=== PATIENT | male | born 1950 | race Caucasian/White ===

== ENCOUNTER 2016-04-17 17:26 | Observation (INO) | payer BC ==
--- NOTE | 2016-04-17 17:29 | US ---
Ultrasound Venous Duplex/Doppler left Leg History: Pain and swelling. Findings: Ultrasound venous duplex and Doppler imaging of the common femoral vein, femoral vein, pop liteal vein, calf veins, greater saphenous vein origin, and contralateral common femoral vein demonst rates positive intraluminal thrombus involving the left femoral vein, popliteal vein, posterior tibia l vein and peroneal veins. No thrombus in left common femoral vein. Impression: Positive extensive deep venous thromboses involving the left femoral, popliteal, and calf veins. Findings and recommendations discussed with Dr. Darrian Ospina at 1715 hour, today. Findings and recommendations have been discussed with the patient who agrees with the plan. Patient h as been taken to the emergency department. Findings and recommendations discussed with Emergency Department physician, Dr. Latesha Segovia, at 1720 hours today. Final report concurs with initial preliminary interpretation. A test result has been communicated to a licensed care provider and documented in [facility] [place] [facility], 5:27:48 PM , 04/17/2016, [place] [facility] Message ID [id number].
--- NOTE | 2016-04-17 17:39 | DX ---
PA and Lateral Chest History: Shortness of breath in a 66-year-old male; no previous chest films are available. Findings: The heart and mediastinal contours are normal. Pulmonary vascularity is normal. There is c entral peribronchial thickening. There are no alveolar opacities seen to suggest pneumonia. Impression: Findings consistent with bronchitis/airways disease are noted.
--- NOTE | 2016-04-17 18:02 | EDPHY ---
[id number]: The patient is a 66 year old male sent here with new diagnosis of DVT in left lower extremity. The patient reports 1 month of swelling in his left calf. He notes moderate pain behind his left knee due to left calf tightness. He noticed increased shortness of breath on exertion. This SOB began a few months ago, it is not present at rest and has not worsened over the past month. He denies recent travel. No recent surgery or procedures. No history of clotting disorder. The patient started swimming for exercise and states that is the only recent change. He also complains of some lower abdominal pain. This pain is intermittent and moderate in severity. His pain is worse after eating. He denies nausea or vomiting. REVIEW OF SYSTEMS: Aside from elements discussed in the HPI, a comprehensive 10-point review of systems was reviewed and is negative. Past Medical/Surgical History: Hypertension, Polycystic kidney disease, baseline creatinine 1.6, Peripheral neuropathy. PSH: left knee replacement Social History: at bedside. Smoking Status: Former smoker Physical Exam: General Appearance: Alert, pleasant Eyes: Pupils equal and round, no conjunctival pallor or injection ENT, Mouth: Mucous membranes moist Neck: Normal inspection Respiratory: Normal respiratory rate, Lungs are clear to auscultation Cardiovascular: Regular rate and rhythm Gastrointestinal: Abdomen is soft and non-tender Neurological: A&O, nonfocal, normal gait Skin: Warm and dry, no rash Extremities: Swelling and tenderness to left calf, positive Homans sign Psychiatric: Mood and affect normal Constitutional: Initial Vital Signs Temperature (C) 36.7 C 04/17/16 17:30 Heart Rate 52 L 04/17/16 17:30 Respiratory Rate 18 04/17/16 17:30 Blood Pressure 150/89 H 04/17/16 17:30 O2 Sat (%) 94 04/17/16 17:30 O2 Delivery Mode Room Air Allergies/Adverse Reactions: No Known Allergies Allergy (Verified 04/17/16 17:28) Home Medications: Medication Instructions Recorded Hydrochlorothiazide [HCTZ (*)] 12.5 mg PO DAILY 08/23/14 Lisinopril [Zestril 20 mg (*)] 20 mg PO DAILY 08/23/14 Omeprazole [Prilosec 20 mg] 20 mg PO DAILY 08/23/14 Acetaminophen [Tylenol 325mg (*)] 650 mg PO Q4HRS PRN #0 tab 04/18/16 Rivaroxaban [Xarelto] 20 mg PO DAILY #30 tab 04/18/16 Medical Decision Making - Diagnostics EKG Interpretation: The 12 lead EKG was interpreted by myself. See hard copy and/or "tracemaster" electronic copy for interpretation: Sinus rhythm, rate 62. Ventricular premature complex. Imaging: Study: Ultrasound of the lower extremity donne earlier today as outpatient. Results: Positive extensive deep venous thromboses involving the left femoral, popliteal, and calf veins. Images were interpreted by the radiologist, Dr. Quinteros. Study: X-ray of the chest was obtained. Results: Bronchitis. Images were interpreted by the radiologist, Dr. Smith. I viewed the images myself on the PACS system. ED Course/Re-evaluation: This patient presents with a left lower extremity DVT. Given his ongoing shortness breath over the last few months, he may also have a pulmonary embolism. Given his baseline creatinine of 1.6, he is not a candidate for CT pulmonary angiogram. He will need a V/Q scan to evaluate for possible pulmonary embolism. This study is not available this evening. I will place him on IV heparin and planned for V/Q scan in the morning. Regarding the shortness of breath, there is no evidence of pulmonary edema or symptoms suggestive of angina/acute coronary syndrome. If the V/Q scan is negative, he will require further evaluation of shortness of breath. 6:15 p.m.: I consulted the hospitalist, the patient will be admitted to Dr. Marshall. 7:30 p.m.: I consult Dr. Morrison, she will consult in the morning regarding possible thrombolysis. Differential Diagnosis: Differential diagnosis includes though it is not limited to acute arterial compromise, cellulitis, compartment syndrome, neurovascular compromise, pulmonary embolism, congestive heart failure, acute coronary syndrome. - Data Points Laboratory Results: Laboratory Results 04/17/16 18:02 04/17/16 18:02 Medications Given: Discontinued Medications Heparin Sodium (Porcine) (Heparin Injection) 0 unit IVP EDNOW ONE PRN Reason: Protocol Stop: 04/17/16 18:24 Last Admin: 04/17/16 18:54 Dose: 5,300 units Hydrochlorothiazide (Microzide) 12.5 mg PO DAILY JOSE Stop: 10/15/16 08:59 Last Admin: 04/18/16 12:54 Dose: 12.5 mg Heparin Sodium (Porcine) (Heparin 50 Units/Ml (Premix)) 500 mls @ 0 mls/hr IV EDNOW ONE; Per Protocol PRN Reason: Protocol Stop: 04/17/16 18:24 Last Admin: 04/17/16 18:54 Dose: 500 mls Lisinopril (Zestril) 20 mg PO DAILY [facility] Stop: 10/15/16 08:59 Last Admin: 04/18/16 10:33 Dose: 20 mg Pantoprazole Sodium (Protonix) 40 mg PO DAILY [facility] Stop: 10/15/16 08:59 Last Admin: 04/18/16 10:32 Dose: 40 mg Departure - Departure Disposition: [facility] Inpatient Acute Clinical Impression: DVT (deep venous thrombosis) Condition: Fair Report Scribed for: Latesha Segovia Report Scribed by: Julia Coe Date of Report: 04/17/16 Time of Report: 18:08 Physician Review and Approval Statement: 04/17/16 18:08 Portions of this note were transcribed by a medical billing and coding instructor. I personally performed the history, physical exam, and medical decision-making; and confirmed the accuracy of the information in the transcribed note.
--- NOTE | 2016-04-17 18:04 | CPEKG ---
Heart Rate: 62 RR Interval: 968 P-R Interval: 152 QRSD Interval: 96 QT Interval: 396 QTC Interval: 402 P Billingsley: 48 QRS Billingsley: 1 T Wave Billingsley: 35 EKG Severity - OTHERWISE NORMAL ECG - EKG Impression: SINUS RHYTHM EKG Impression: VENTRICULAR PREMATURE COMPLEX Electronically Signed By: Latesha Segovia 17-Apr-2016 21:39:41
[2016-04-17 18:14] LABS: % IMMATURE GRANULYOCYTES 0.3 % (0.0-1.1); ABSOLUTE IMMATURE GRANULOCYTES 0.02 10^3/uL (0.00-0.10); ADD DIFF? NO; ADD MORPH? NO; ADD SCAN? NO; ATYPICAL LYMPHOCYTE FLAG 10 (0-99); FRAGMENT RBC FLAG 0 (0-99); HEMATOCRIT 43.6 % (40.0-51.0); HEMOGLOBIN 14.9 g/dL (13.7-17.5); LEFT SHIFT FLG 0 (0-99); LIPEMIA HEMOLYSIS FLAG 90 (0-99); MEAN CELL HEMOGLOBIN 31.2 pg (27.9-34.1); MEAN CELL HEMOGLOBIN CONCENTR. 34.2 g/dL (32.4-36.7); MEAN CELL VOLUME 91.4 fL (81.5-99.8); MEAN PLATELET VOLUME 10.3 fL (8.7-11.7); PLATELET CLUMPS FLAG 10 (0-99); PLATELET COUNT 184 10^3/uL (150-400); RED BLOOD CELL COUNT 4.77 10^6/uL (4.40-6.38); RED CELL DISTRIBUTION WIDTH 12.5 % (11.5-15.2)
[2016-04-17 18:19] LABS: INR 1.02 (0.83-1.16); PROTIME(PATIENT) 13.3 SEC (12.0-15.0)
[2016-04-17 18:20] LABS: APTT 25.6 SEC (23.0-38.0)
[2016-04-17] MEDS ORDERED: HEPARIN/DEXTROSE 500 ML IV ONE (18:23)
[2016-04-17] MEDS ORDERED: HEPARIN 10,000 UNIT/10 ML MDV IVP ONE (18:23)
[2016-04-17 18:29] LABS: ANION GAP 13 mEq/L (8-16); CALCIUM 9.6 mg/dL (8.5-10.4); CARBON DIOXIDE 27 mEq/l (22-31); CHLORIDE 103 mEq/L (97-110); CREATININE 1.6 mg/dL (0.7-1.3); GLOMERULAR FILTRATION RATE 44; GLUCOSE 87 mg/dL (70-100); POTASSIUM 4.4 mEq/L (3.5-5.2); SODIUM 143 mEq/L (134-144)
[2016-04-17] MEDS ORDERED: oxyCODONE IR 5 MG TAB PO PRN (19:15)
[2016-04-17] MEDS ORDERED: ONDANSETRON 4 MG/2 ML VIAL IVP PRN (19:15)
[2016-04-17] MEDS ORDERED: ACETAMINOPHEN 325 MG TAB PO PRN (19:15)
[2016-04-17] MEDS ORDERED: ONDANSETRON DISINTEGRATING 4 MG TAB PO PRN (19:15)
[2016-04-17] MEDS ORDERED: TEMAZEPAM 15 MG CAP PO PRN (19:15)
[2016-04-17] MEDS ORDERED: HEPARIN 10,000 UNIT/10 ML MDV IVP PRN (19:16)
[2016-04-17] MEDS ORDERED: HEPARIN/DEXTROSE 500 ML IV SCH (19:30)
--- NOTE | 2016-04-17 19:43 | GHP ---
[f rep st] HISTORY AND PHYSICAL DATE OF ADMISSION: 04/17/2016 CHIEF COMPLAINT: Swollen leg. 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 He initially thought that this was due to fluid retention from his kidney disease. Dr. Ospina sent him to the ED for an ultrasound, which revealed a DVT. He says that it has been swollen for about a month. He has had shortness of breath, which preceded the swollen leg and has been going on for some time. He does not have any stephan st pain. PAST MEDICAL HISTORY/PAST SURGICAL HISTORY: 1. Polycystic kidney disease. 2. Hypertension. 3. GERD. MEDICATIONS: Please see medication reconciliation. ALLERGIES: None. FAMILY HISTORY: No clots. SOCIAL HISTORY: He occasionally drinks, he quit smoking 40 years ago. He is accompanied by his . REVIEW OF SYSTEMS: A 10-point review of systems is conducted and is negative except for HPI. PHYSICAL EXAM: VITAL SIGNS: Blood pressure is 150/89, heart rate 52, respiratory rate 18, saturatin g 94% on room air, temperature is 36.7. GENERAL: The patient is a very pleasant man, who is lying in bed comfortable, in no acute distress. HEENT: Shows him to be normocephalic, atraumatic, no scleral icterus. CARDIOVASCULAR: Shows a regular rate and rhythm, no murmurs, rubs, or gallops. PULMONARY: Lungs clear to auscultation bilaterally. ABDOMEN: Soft, nontender, nondistended. SKIN: No rash. : No Hutchison. NEUROLOGIC: Exam shows him to be alert and oriented x3, he is moving all extremities. PSYCHIATRIC: Exam shows normal mood and affect. EXTREMITIES: Exam shows marked, significantly edematous about 2+ pitting edema in the left lower ext remity of the knee. He has no loss of sensation. LABORATORY DATA: CBC is normal, INR is 1, creatinine is 1.6. LABORATORY DATA: 1. EKG, which I personally reviewed and interpreted shows one PVC, otherwise sinus rhythm, unremarka ble. 2. Chest x-ray, which I personally reviewed and interpreted, shows possibly mild bronchitis. I discussed this with Dr. Segovia, will admit and place on telemetry. IMPRESSION AND PLAN: 1. Deep venous thrombosis: Not a TPA candidate. We will place him on IV heparin overnight. Discus sed oral anticoagulation options and wrote those down for him, he will look into these overnight and decide. He is leaning towards Pradaxa or Xarelto. Given his shortness of breath I think it is prude nt to investigate a PE. He has polycystic kidney disease, at his baseline creatinine but not safe fo r contrast. We will have a V/Q scan ordered tomorrow. 2. Polycystic kidney disease: Baseline creatinine. Avoid nephrotoxins. He follows with Dr. Martha arreola. 3. Hypertension: We will continue his medications. 4. Gastroesophageal reflux disease: Continue omeprazole. 5. Code status: He would like to be full code, he is clear on this. /[id number]/MODL
[2016-04-18 06:07] LABS: % IMMATURE GRANULYOCYTES 0.4 % (0.0-1.1); ABSOLUTE IMMATURE GRANULOCYTES 0.03 10^3/uL (0.00-0.10); ADD DIFF? NO; ADD MORPH? NO; ADD SCAN? NO; ATYPICAL LYMPHOCYTE FLAG 10 (0-99); FRAGMENT RBC FLAG 10 (0-99); HEMATOCRIT 37.6 % (40.0-51.0); HEMOGLOBIN 13.1 g/dL (13.7-17.5); LEFT SHIFT FLG 0 (0-99); LIPEMIA HEMOLYSIS FLAG 90 (0-99); MEAN CELL HEMOGLOBIN 31.9 pg (27.9-34.1); MEAN CELL HEMOGLOBIN CONCENTR. 34.8 g/dL (32.4-36.7); MEAN CELL VOLUME 91.5 fL (81.5-99.8); MEAN PLATELET VOLUME 10.8 fL (8.7-11.7); PLATELET CLUMPS FLAG 0 (0-99); PLATELET COUNT 146 10^3/uL (150-400); RED BLOOD CELL COUNT 4.11 10^6/uL (4.40-6.38); RED CELL DISTRIBUTION WIDTH 12.5 % (11.5-15.2)
[2016-04-18 06:36] LABS: ANION GAP 11 mEq/L (8-16); CALCIUM 8.9 mg/dL (8.5-10.4); CARBON DIOXIDE 25 mEq/l (22-31); CHLORIDE 107 mEq/L (97-110); CREATININE 1.5 mg/dL (0.7-1.3); GLOMERULAR FILTRATION RATE 47; GLUCOSE 96 mg/dL (70-100); POTASSIUM 4.4 mEq/L (3.5-5.2); SODIUM 143 mEq/L (134-144)
[2016-04-18 08:47] VITALS: RESP 19
[2016-04-18] MEDS ORDERED: LISINOPRIL 20 MG TAB PO SCH (09:00)
[2016-04-18] MEDS ORDERED: NON-FORMULARY NEW DRUG (Omeprazole [Prilosec 20 Mg] 20 MG) PO SCH (09:00)
[2016-04-18] MEDS ORDERED: PANTOPRAZOLE SODIUM 40 MG TAB PO SCH (09:00)
[2016-04-18] MEDS ORDERED: HYDROCHLOROTHIAZIDE 12.5 MG CAP PO SCH (09:00)
[2016-04-18 12:20] VITALS: BP 145/79; PULSE 58; TEMP 97.7; O2SAT 95
--- NOTE | 2016-04-18 12:29 | NM ---
Nuclear Medicine Perfusion Lung Scan dated April 18, 2016 at 1025 hours Indications: Shortness of breath. Technique: Ventilation imaging was not performed. Perfusion imaging was performed with 6.2 mCi of te chnetium 99m MAA injected intravenously. Perfusion images were acquired in multiple projections. Findings: There is some artifact on the lateral which was likely felt to be the patient's arms. It i s not present in a segmental distribution. There is no convincing evidence of segmental perfusion abn ormality. Impression: Normal; no evidence of pulmonary embolism. I have reviewed this with Dr. Scott, who agrees with the above findings.
--- NOTE | 2016-04-18 13:56 | PDDCSUM ---
Discharge Summary Discharge Summary: DISCHARGE SUMMARY FOLLOW-UP ITEMS: Monitor creatinine as an outpatient DATE OF ADMISSION: 04/17/2016 DATE OF DISCHARGE: 04/18/2016 DISCHARGE DIAGNOSES: 1. Acute deep venous thrombosis 2. Chronic shortness of breath CONSULTATIONS: None PROCEDURES / IMAGING: Lower extremity ultrasound demonstrating deep venous thrombosis from the femoral down to the popliteal vein on the left CHIEF COMPLAINT: Lower extremity edema SUBJECTIVE: Ongoing lower extremity edema, no chest pain PHYSICAL EXAM ON DISCHARGE: Heart rate 50s, systolic blood pressure 1/36, afebrile overnight, satting well on room air, left lower extremity has trace edema with easily palpable dorsalis pedis pulse, no soft tissue tenderness, motor strength 5/5 on hip flexion LABS ON DISCHARGE: Creatinine 1.5, potassium 4.4, white blood cell count 6700, 13.1 hemoglobin HOSPITAL COURSE BY PROBLEM: 1. Acute deep venous thrombosis. Idiopathic, no clear precipitating event, located in the left lower extremity and detected on ultrasound. Given patient' s underlying chronic kidney disease, was initiated on a heparin drip in the emergency department and will be transitioned to Xarelto initiating dose of 15 mg twice daily for 3 weeks and then 20 mg daily thereafter. The patient was educated regarding bleeding risk as well as elevation of his lower extremity and the need for routine outpatient creatinine level monitoring. I discussed with our pharmacist, and his creatinine clearance is appropriate for regular, full-strength dosing. The patient was presented with all of the options for systemic anticoagulation and he chose Xarelto. 2. Chronic shortness of breath. The patient has experienced shortness of breath with exertion for some time, and he was ruled out for pulmonary embolism with a V/Q scan. The patient has not undergone cardiac risk stratification and I recommend that he undergo a stress test in the outpatient setting after approximately 1 week of receiving systemic anticoagulation. He may also require an echocardiogram. At the present time he has no evidence of congestive heart failure and he is not expressing any anginal symptoms. His EKG demonstrated no ischemic findings any is an isolated Q-wave in lead 3. The patient will address his shortness of breath with his primary care provider next week during follow-up. DISCHARGE MEDICATIONS: Please see official discharge medication reconciliation sheet in chart , Xarelto 15 mg twice daily x3 weeks then 20 mg daily thereafter. DISCHARGE INSTRUCTIONS: Please follow up with Dr. Johnson next week and then Dr. Bhavesh for routine chronic kidney disease monitoring thereafter.
== END 2016-04-18 15:31 | disposition home or self-care (01) ==
LOC: INTOOBSV 18:22 → F1N 20:15
PROVIDERS: ADMIT Student in an Organized Health Care Education/Training Program; ATTEND Student in an Organized Health Care Education/Training Program
DX: I82.412 Acute embolism and thrombosis of left femoral vein (principal); I82.432 Acute embolism and thrombosis of left popliteal vein; R06.02 Shortness of breath; Q61.3 Polycystic kidney, unspecified; I10 Essential (primary) hypertension; K21.9 Gastro-esophageal reflux disease without esophagitis; Z96.652 Presence of left artificial knee joint; Z87.891 Personal history of nicotine dependence
CPT/HCPCS: 71020; 78580; 93005; 93971; A9540; G0378; 85520-90; J1644

== ENCOUNTER → 2017-01-15 | Outpatient (CLI) | payer BC | LOC: BMCIMAGING 09:18 | PROVIDERS: ATTEND Orthopaedic Surgery Hand Surgery | DX: R22.32 Localized swelling, mass and lump, left upper limb (principal) ==